=== PATIENT | female | born 1995 | race Caucasian/White ===

== ENCOUNTER 2021-11-25 22:20 | Inpatient (IN) | payer BC ==
[~2021-11-25] VITALS: Ht 154.9 cm; Wt 78.5 kg
[2021-11-25] MEDS ORDERED: NALBUPHINE 10 MG/ML AMP IVP PRN (22:55)
[2021-11-25] MEDS ORDERED: LACTATED RINGERS 500 ML IV SCH (22:55)
[2021-11-25] MEDS ORDERED: BUTORPHANOL 2 MG/ML VIAL IM PRN (22:55)
[2021-11-25] MEDS ORDERED: CARBOPROST 250 MCG/ML AMP IM PRN (22:55)
[2021-11-25] MEDS ORDERED: OXYTOCIN 20 UNITS in LACTATED RINGERS 1,000 ML IV SCH (22:55)
[2021-11-25] MEDS ORDERED: METHYLERGONOVINE 0.2 MG/ML AMP IM PRN (22:55)
[2021-11-25 23:22] LABS: BASOPHILS # (AUTO) 0.1 K/uL (0.00-0.22); BASOPHILS % (AUTO) 0.8 % (0.0-2.0); HEMATOCRIT 38.6 % (36-48); HEMOGLOBIN 13.2 g/dL (12.0-16.0); LYMPHOCYTES % (AUTO) 5.8 % (20.5-51.1); MEAN CORPUSCULAR HEMOGLOBIN 27 pg (27-31); MEAN CORPUSCULAR HGB CONC 34 g/dL (33-37); MEAN CORPUSCULAR VOLUME 80.2 fL (80-94); MONOCYTES # (AUTO) 0.9 K/uL (0.8-1.0); NEUTROPHILS # (AUTO) 15.2 K/uL (1.8-7.7); NEUTROPHILS % (AUTO) 88.4 % (42.2-75.2); PLATELET COUNT (AUTO) 190 K/uL (140-450); RED BLOOD CELL COUNT(AUTO) 4.82 MIL/uL (4.20-5.40); RED CELL DISTRIBUTION WIDTH 14.1 % (11.6-13.7); WHITE BLOOD COUNT (AUTO) 17.2 K/uL (4.8-10.8)
[2021-11-25] MEDS: LACTATED RINGERS 1,000 ML IV SCH (23:33)
[2021-11-25 23:56] LABS: ALBUMIN 2.5 g/dL (3.4-5.0); ANION GAP 13.8 (8-16); CARBON DIOXIDE 21.6 mmol/L (21-32); CREATININE 0.7 mg/dL (0.6-1.3); POTASSIUM 3.4 mmol/L (3.5-5.1); TOTAL BILIRUBIN 0.5 mg/dL (0.0-1.0)
[2021-11-26] MEDS ORDERED: ONDANSETRON 4 MG/2 ML VIAL IVP PRN (00:10)
[2021-11-26] MEDS ORDERED: MORPHINE SULFATE 2 MG/ML SYR IVP PRN (00:10)
[2021-11-26] MEDS ORDERED: MORPHINE SULFATE 10 MG/ML VIAL ONE (00:38)
[2021-11-26 03:05] LABS: APPEARANCE,URINE CLOUDY (CLEAR); BILIRUBIN,URINE NEGATIVE (NEGATIVE); BLOOD, URINE 3+ (NEGATIVE); COLOR,URINE YELLOW (YELLOW); LEUKOCYTE ESTERASE ,URINE 2+ (NEGATIVE); NITRITE, URINE NEGATIVE (NEGATIVE); UGLUCOSE NEGATIVE (NEGATIVE)
[2021-11-26 03:13] LABS: RBC,URINE 0-5 /HPF (0-5)
[2021-11-26 04:05] VITALS: BP 123/77
[2021-11-26] MEDS ORDERED: AMPICILLIN 2,000 MG VIAL ONE (05:32)
[2021-11-26] MEDS: LACTATED RINGERS 1,000 ML IV SCH ×4 (05:43→12:06)
[2021-11-26] MEDS ORDERED: ROPIVACAINE 0.2%/NS PREMIX 200 ML EPI ONE (06:33)
[2021-11-26] MEDS ORDERED: AMPICILLIN 2,000 MG in NACL 0.9% 100 ML IV SCH (07:00)
[2021-11-26] MEDS ORDERED: OXYTOCIN 20 UNITS/LR PREMIX 1,000 ML IV ONE (07:21)
[2021-11-26] MEDS ORDERED: ROPIVACAINE 0.2%/NS PREMIX 100 ML EPI SCH (08:45)
--- NOTE | 2021-11-26 09:16 | NUR ---
PATIENT HAS BEEN SCREENED AND CATEGORIZED LOW NUTRITION RISK. PATIENT WILL BE SEEN WITHIN 7 DAYS OF ADMISSION. 12/02/21 REVIEWED BY ADOLFO [address]
[2021-11-26] MEDS ORDERED: AMPICILLIN 1,000 MG VIAL ONE ×3 (10:18→18:19)
[2021-11-26] MEDS ORDERED: AMPICILLIN 1,000 MG in NACL 0.9% 50 ML IV SCH (14:22)
[2021-11-26] MEDS ORDERED: LIDOCAINE MPF 1% 10 MG/ML VIAL INJ SCH (15:45)
[2021-11-26] MEDS ORDERED: IBUPROFEN 600 MG TAB PO PRN (19:20)
[2021-11-26] MEDS ORDERED: oxyCODONE/APAP 5/325 MG 1 TAB TAB PO PRN (19:20)
[2021-11-26] MEDS ORDERED: METHYLERGONOVINE 0.2 MG/ML AMP IM PRN (19:20)
[2021-11-26] MEDS ORDERED: OXYTOCIN 10 UNITS/ML VIAL IM PRN (19:20)
[2021-11-26] MEDS ORDERED: HYDROcodone/APAP 5/325 MG 1 TAB TAB PO PRN (19:20)
[2021-11-26] MEDS ORDERED: BENZOCAINE/MENTHOL 20%-0.5% 60 GM CAN TP PRN (19:20)
[2021-11-26] MEDS ORDERED: bisacodyL 5 MG TABEC PO SCH (21:00)
[2021-11-27 06:50] LABS: HEMATOCRIT 30.5 % (36-48); HEMOGLOBIN 10.4 g/dL (12.0-16.0)
== END 2021-11-28 15:20 | disposition home or self-care (01) | DRG 807 ==
LOC: MLD 22:20 → MFCC 11-26 21:59
PROVIDERS: ADMIT Obstetrics & Gynecology; ATTEND Obstetrics & Gynecology
PROC: 10E0XZZ Delivery of Products of Conception, External Approach (ICD-10-PCS; principal; 2021-11-26)
PROC: 0HQ9XZZ Repair Perineum Skin, External Approach (ICD-10-PCS; 2021-11-26)
PROC: 3E0R3BZ Introduction of Anesthetic Agent into Spinal Canal, Percutaneous Approach (ICD-10-PCS; 2021-11-26)
PROC: 00HU33Z Insertion of Infusion Device into Spinal Canal, Percutaneous Approach (ICD-10-PCS; 2021-11-26)
DX: O70.0 First degree perineal laceration during delivery (principal); Z37.0 Single live birth; Z20.822 Contact with and (suspected) exposure to COVID-19; Z3A.41 41 weeks gestation of pregnancy
CPT/HCPCS: 36415; 59409; 80053; 81001; 85018; 85025; 85730; 86592; 86886; 86900; 86901; 87086; 87340; J0290; J2270; J2300; J2405; J2590; J2795